=== PATIENT | male | born 1955 | race Caucasian/White ===

== ENCOUNTER 2018-05-08 20:42 | Emergency (ER) | payer BC ==
[2018-05-08 21:03] VITALS: BP 129/95
--- NOTE | 2018-05-08 21:04 | UC ---
Hand/Wrist HPI - HPI Summary HPI Summary: 62 yo male presents with right wrist pain and swelling for the last 2 days s/p fall. He tells me that he was at his [facility] 2 days ago and slipped and fell onto his buttocks - his right wrist hit the ground awkwardly. Did not hit his head. Was ambulatory immediately following. Right wrist continued to be painful and soon started swelling. He has been taking ibuprofen for the pain, but is concerned something may be broken. Denies numbness or tingling. - History Of Current Complaint Chief Complaint: UCUpperExtremity Stated Complaint: RIGHT WRIST INJ Time Seen by Provider: 05/08/18 21:04 Hx Obtained From: Patient Onset/Duration: Sudden Onset Severity Initially: Moderate Severity Currently: Moderate Pain Intensity: 6 Pain Scale Used: 0-10 Numeric - Allergies/Home Medications Allergies/Adverse Reactions: Allergies Allergy/AdvReac Type Severity Reaction Status Date / Time No Known Allergies Allergy Verified 05/08/18 21:03 Home Medications: Home Medications Naproxen Sodium [Aleve] 220 mg PO BID 05/08/18 [History Confirmed 05/08/18] PMH/Surg Hx/FS Hx/Imm Hx Previously Healthy: Yes Endocrine History: Dyslipidemia - Surgical History Surgical History: None - Family History Known Family History: Positive: Cardiac Disease - Social History Occupation: Employed Full-time Lives: With Family Alcohol Use: Weekly Alcohol Amount: 4 days a week Substance Use Type: None Smoking Status (MU): Never Smoked Tobacco - Immunization History Most Recent Tetanus Shot: unknown Review of Systems Constitutional: Negative Skin: Negative Respiratory: Negative Cardiovascular: Negative Motor: Negative Neurovascular: Negative Musculoskeletal: Other: - Right wrist pain and swelling Neurological: Negative Psychological: Negative All Other Systems Reviewed And Are Negative: Yes Physical Exam - Summary Physical Exam Summary: GENERAL: NAD. WDWN. No pain distress. SKIN: No rashes, sores, lesions, or open wounds. NECK: Supple. Nontender. No lymphadenopathy. CHEST: No accessory muscle use. Breathing comfortably and in no distress. CV: Pulses intact radial and ulnar. MSK: RIGHT WRIST: Mild TTP over radial styloid and snuffbox. Moderate edema about wrist. FROM. Strength 5/5 including senior cognos developer strength. No obvious bony deformities. NEURO: Alert. Sensations intact hand and all fingers. PSYCH: Age appropriate behavior. Triage Information Reviewed: Yes Vital Signs: Initial Vital Signs Temp 97.8 F 05/08/18 20:56 Pulse 61 05/08/18 20:56 Resp 17 05/08/18 20:56 BP 129/95 05/08/18 20:56 Pulse Ox 100 05/08/18 20:56 Hand/Wrist Course/Dx - Course Course Of Treatment: There is no radiology coverage after 1999 therefore the wet read for his RIGHT wrist XR is negative for fracture. Given the degree of edema and snuffbox tenderness, he was placed in a thumb spica splint and advised to RICE and f/u with Orthopedics as soon as possible. Also advised to call in the morning and get the official read of his XR. - Differential Dx/Diagnosis Provider Diagnoses: Right wrist pain s/p fall Discharge - Sign-Out/Discharge Documenting (check all that apply): Patient Departure - Discharge Plan Condition: Stable Disposition: HOME Patient Education Materials: Wrist Sprain (ED) Referrals: No Primary Care Phys,NOPCP [Primary Care Provider] - Maik Webster MD [Medical Doctor] - As Soon As Possible Additional Instructions: If you develop a fever, shortness of breath, chest pain, new or worsening symptoms - please call your PCP or go to the ED. Your blood pressure was high at todays visit. Please see your primary provider within 4 weeks for recheck and re-evaluation. 1) Rest, Ice, and elevate your wrist as much as possible. Wear the thumb spica splint as much as possible while your wrist heals. 2) Please call our clinic tomorrow morning to get the official report of your X- Ray taken this evening 3) Please call Orthopedics at the number below to schedule a follow up appointment as soon as possible Per institutional requirements, I have reviewed the chart, however, I was not consulted specifically or made aware of this patient by the above midlevel provider. I did not personally evaluate, interact with , or disposition this patient. - Billing Disposition and Condition Condition: STABLE Disposition: Home
--- NOTE | 2018-05-09 07:44 | RAD ---
INDICATION: RIGHT wrist pain and swelling post fall COMPARISON: None. TECHNIQUE: AP, lateral, and oblique views RIGHT wrist. REPORT AND IMPRESSION: #. Diffuse soft tissue swelling. No cortical disruption or suspicious trabecular irregularity to suggest fracture. Normal articular alignment. R0
== END 2018-05-08 21:29 | disposition home or self-care (01) ==
LOC: UCCORT 20:42
DX: M25.531 Pain in right wrist (principal); E78.5 Hyperlipidemia, unspecified
CPT/HCPCS: 99202; G0463

== ENCOUNTER 2018-05-28 11:23 | Emergency (ER) | payer BC ==
--- NOTE | 2018-05-28 11:53 | UC ---
Hand/Wrist HPI - HPI Summary HPI Summary: Pt presents with c/o right wrist pain. Pt was seen at [facility] on 05/08/18, examination and xrays done at time of visit. Pt was diagnosed with wrist sparin. Pt has been wearing thumb spica splint since time of visit, taking occasional tylenol for pain, did not follow up with orthopedic as directed at last visit, traveled to [facility] for two weeks and now presents with continued c/o right wrist pain. - History Of Current Complaint Stated Complaint: RT WRIST RECHECK Time Seen by Provider: 05/28/18 11:31 Hx Obtained From: Patient ?: No Onset/Duration: Sudden Onset, Lasting Weeks, Still Present Severity Initially: Moderate Severity Currently: Moderate Character Of Pain: Dull, Aching, Stiffness Aggravating Factor(s): Movement Alleviating Factor(s): Rest Associated Signs And Symptoms: Positive: Swelling, Weakness Related History: Dominant Hand Right - Risk Factors Compartment Syndrome Risk Factors: Pain - Allergies/Home Medications Allergies/Adverse Reactions: Allergies Allergy/AdvReac Type Severity Reaction Status Date / Time No Known Allergies Allergy Verified 05/28/18 11:55 Home Medications: Home Medications Acetaminophen TAB* [Tylenol TAB*] 650 mg PO Q4H PRN 05/28/18 [History Confirmed 05/28/18] PMH/Surg Hx/FS Hx/Imm Hx Previously Healthy: Yes Endocrine History: Dyslipidemia - Surgical History Surgical History: None - Family History Known Family History: Positive: Cardiac Disease - Social History Occupation: Retired Lives: With Family Alcohol Use: Weekly Alcohol Amount: 4 days a week Substance Use Type: None Smoking Status (MU): Never Smoked Tobacco Have You Smoked in the Last Year: No - Immunization History Most Recent Tetanus Shot: unknown Review of Systems Constitutional: Negative Skin: Negative Eyes: Negative ENT: Negative Respiratory: Negative Cardiovascular: Negative Gastrointestinal: Negative Genitourinary: Negative Motor: Decreased ROM - right wrist Neurovascular: Negative Musculoskeletal: Arthralgia, Decreased ROM - right wrist, Myalgia Neurological: Negative Psychological: Negative Is Patient Immunocompromised?: No All Other Systems Reviewed And Are Negative: Yes Physical Exam Triage Information Reviewed: Yes Appearance: Well-Appearing Vital Signs Reviewed: Yes Eye Exam: Normal ENT: Positive: Hearing grossly normal Neck exam: Normal Respiratory: Positive: No respiratory distress Musculoskeletal Exam: Other Musculoskeletal: Positive: Strength Limited @ - right wrist, ROM Limited @ - right wrist Neurological Exam: Normal Psychological Exam: Normal Skin Exam: Normal Diagnostics - Laboratory Diagnostic Studies Completed/Ordered: Pt's right wrist xray from 05/08/18 was negative for fracture. - Radiology No standard instances Radiology Interpretation Completed By: Radiologist - 3 views of the wrist demonstrates no fracture. No other bone or joint abnormality is identified. IMPRESSION: NO FRACTURE OF THE WRIST IS NOTED. Hand/Wrist Course/Dx - Differential Dx/Diagnosis Differential Diagnosis/HQI/PQRI: Fracture, Sprain, Strain Provider Diagnoses: right wrist sprain Discharge - Sign-Out/Discharge Documenting (check all that apply): Patient Departure - Discharge Plan Condition: Stable Disposition: HOME Patient Education Materials: Wrist Sprain (ED), Safe Use of NSAIDs (ED) Referrals: Augustus Farias MD [Medical Doctor] - If Needed Maik Webster MD [Medical Doctor] - As Soon As Possible Martha Blackwood [Primary Care Provider] - - Billing Disposition and Condition Condition: STABLE Disposition: Home Attestation Statement User Type: Provider - I was available for consult. This patient was seen by the MACIE. The patient was not presented to, seen by, or examined by me. -Lucinda
[2018-05-28 11:55] VITALS: BP 145/82
--- NOTE | 2018-05-28 12:09 | RAD ---
Indication: Right wrist pain and wrist injury 3 views of the wrist demonstrates no fracture. No other bone or joint abnormality is identified. IMPRESSION: NO FRACTURE OF THE WRIST IS NOTED.
== END 2018-05-28 12:43 | disposition home or self-care (01) ==
LOC: UCCORT 11:23
DX: Z51.89 Encounter for other specified aftercare (principal)
CPT/HCPCS: 99211; G0463